=== PATIENT | female | born 1960 | race Caucasian/White ===

== ENCOUNTER 2022-09-19 06:00 | Day surgery (SDC) | payer OTHER | END 2022-09-19 11:25 | disposition home or self-care (01) | LOC: AMB-ENDOS 06:00 | PROVIDERS: ATTEND Surgery | DX: K63.5 Polyp of colon (principal); K92.1 Melena; Z20.822 Contact with and (suspected) exposure to COVID-19 ==

== ENCOUNTER 2022-12-02 11:54 | Inpatient (IN) | payer OTHER ==
[~2022-12-02] VITALS: Ht 167.6 cm; Wt 93.4 kg
[2022-12-03] MEDS ORDERED: NORVASC2.5 M1 PO (08:52)
[2022-12-03] MEDS ORDERED: ELIQUIS2.5 MG PO (08:52)
[2022-12-03] MEDS ORDERED: ZESTRIL2.5 MG PO (08:52)
[2022-12-03] MEDS ORDERED: HORIZANT300 MG PO (08:53)
[2022-12-03] MEDS ORDERED: LIPITOR20 MG PO (08:53)
[2022-12-03] MEDS ORDERED: HUMULIN 70100 UNIT/2 (08:53)
[2022-12-03] MEDS ORDERED: ZANAFLEX2 MG PO (08:54)
[2022-12-03] MEDS ORDERED: JARDIANCE10 MG PO (08:55)
[2022-12-09] MEDS ORDERED: ELIQUIS5 MG (08:33)
[2022-12-09] MEDS ORDERED: TRADJENTA5 MG (08:34)
[2022-12-09] MEDS ORDERED: GABAPENTIN400 MG (08:34)
[2022-12-09] MEDS ORDERED: ATORVASTATIN CA80 MG (08:34)
[2022-12-09] MEDS ORDERED: MAXIMUM D3325 MCG (08:34)
[2022-12-09] MEDS ORDERED: LISINOPRIL10 MG (08:34)
[2022-12-09] MEDS ORDERED: FAMOTIDINE20 MG (08:34)
[2022-12-09] MEDS ORDERED: FUROSEMIDE20 MG (08:34)
[2022-12-09] MEDS ORDERED: AMLODIPINE BESY10 MG (08:34)
[2022-12-09] MEDS ORDERED: CALCITRIOL0.25 MCG (08:34)
[2022-12-16] MEDS ORDERED: ACETAMINOPHEN500 M2 PO (12:45)
[2022-12-16] MEDS ORDERED: NEURONTIN300 MG PO (12:45)
== END 2022-12-16 16:27 | disposition home or self-care (01) | DRG 330 ==
LOC: O/R 12-09 06:05 → SURG 12-09 06:05 → SURH 12-09 09:15 → SURG 12-09 10:14 → SURH 12-09 16:00 → O/R 12-11 14:30 → SURH 12-11 14:31
PROVIDERS: ADMIT Surgery; ATTEND Surgery
PROC: 07BC4ZZ Excision of Pelvis Lymphatic, Percutaneous Endoscopic Approach (ICD-10-PCS; 2022-12-09)
PROC: B24BYZZ Ultrasonography of Heart with Aorta using Other Contrast (ICD-10-PCS; 2022-12-09)
PROC: 4A12X4Z Monitoring of Cardiac Electrical Activity, External Approach (ICD-10-PCS; 2022-12-09)
PROC: 02HV33Z Insertion of Infusion Device into Superior Vena Cava, Percutaneous Approach (ICD-10-PCS; 2022-12-09)
PROC: 5A0945A Assistance with Respiratory Ventilation, 24-96 Consecutive Hours, High Flow/Velocity Cannula (ICD-10-PCS; 2022-12-09)
PROC: 0DTF4ZZ Resection of Right Large Intestine, Percutaneous Endoscopic Approach (ICD-10-PCS; principal; 2022-12-09 16:00)
PROC: BW24ZZZ Computerized Tomography (CT Scan) of Chest and Abdomen (ICD-10-PCS; 2022-12-11)
PROC: B54DZZZ Ultrasonography of Bilateral Lower Extremity Veins (ICD-10-PCS; 2022-12-11)
DX: D12.0 Benign neoplasm of cecum (principal); I48.20 Chronic atrial fibrillation, unspecified; K92.1 Melena; J95.89 Other postprocedural complications and disorders of respiratory system, not elsewhere classified; J98.11 Atelectasis; R09.02 Hypoxemia; R59.0 Localized enlarged lymph nodes; I11.9 Hypertensive heart disease without heart failure; Z79.01 Long term (current) use of anticoagulants; E11.9 Type 2 diabetes mellitus without complications; Z79.4 Long term (current) use of insulin; E66.09 Other obesity due to excess calories; E78.5 Hyperlipidemia, unspecified

== ENCOUNTER 2022-12-18 15:17 | Inpatient (IN) | payer OTHER ==
[~2022-12-18] VITALS: Ht 152.4 cm; Wt 90.7 kg
[~2022-12-18 15:17] MED LIST: ACETAMINOPHEN500 M2 PO; AMLODIPINE BESY10 MG; ATORVASTATIN CA80 MG; CALCITRIOL0.25 MCG; ELIQUIS2.5 MG PO; ELIQUIS5 MG; FAMOTIDINE20 MG; FUROSEMIDE20 MG; GABAPENTIN400 MG; HORIZANT300 MG PO; HUMULIN 70100 UNIT/2; JARDIANCE10 MG PO; LIPITOR20 MG PO; LISINOPRIL10 MG; MAXIMUM D3325 MCG; NEURONTIN300 MG PO; NORVASC2.5 M1 PO; TRADJENTA5 MG; ZANAFLEX2 MG PO; ZESTRIL2.5 MG PO
[2023-01-02] MEDS ORDERED: AMLODIPINE BESY10 MG PO (10:42)
[2023-01-02] MEDS ORDERED: ELIQUIS5 MG PO (10:42)
[2023-01-02] MEDS ORDERED: LISINOPRIL10 MG PO (10:43)
[2023-01-02] MEDS ORDERED: METOPROLOL TAR100 MG PO (10:43)
[2023-01-02] MEDS ORDERED: LANOXIN125 MCG PO (10:43)
[2023-01-02] MEDS ORDERED: INTESTINEX680 M1 PO (10:44)
[2023-01-02] MEDS ORDERED: FUROSEMIDE10 MG/1 M1 PO (10:44)
[2023-01-02] MEDS ORDERED: PROTEINEX-18 LI30 ML PO (10:44)
== END 2023-01-02 13:07 | disposition home or self-care (01) | DRG 871 ==
LOC: ER 15:17 → ICU-2 23:13 → ICU 12-20 03:04 → SURG 12-29 21:13
PROVIDERS: General Practice; Internal Medicine Geriatric Medicine; Internal Medicine Infectious Disease; ADMIT Surgery; ATTEND Surgery
PROC: BW21ZZZ Computerized Tomography (CT Scan) of Abdomen and Pelvis (ICD-10-PCS; 2022-12-18)
PROC: 3E0F7GC Introduction of Other Therapeutic Substance into Respiratory Tract, Via Natural or Artificial Opening (ICD-10-PCS; 2022-12-19)
PROC: 02HV33Z Insertion of Infusion Device into Superior Vena Cava, Percutaneous Approach (ICD-10-PCS; 2022-12-20)
PROC: 30233N1 Transfusion of Nonautologous Red Blood Cells into Peripheral Vein, Percutaneous Approach (ICD-10-PCS; 2022-12-20)
PROC: B54NZZZ Ultrasonography of Left Upper Extremity Veins (ICD-10-PCS; 2022-12-24)
PROC: BW21ZZZ Computerized Tomography (CT Scan) of Abdomen and Pelvis (ICD-10-PCS; 2022-12-24)
PROC: 5A09457 Assistance with Respiratory Ventilation, 24-96 Consecutive Hours, Continuous Positive Airway Pressure (ICD-10-PCS; 2022-12-24)
PROC: 0W993ZZ Drainage of Right Pleural Cavity, Percutaneous Approach (ICD-10-PCS; principal; 2022-12-26)
PROC: BB24ZZZ Computerized Tomography (CT Scan) of Bilateral Lungs (ICD-10-PCS; 2022-12-28)
PROC: 4A12X4Z Monitoring of Cardiac Electrical Activity, External Approach (ICD-10-PCS; 2022-12-29)
DX: A41.9 Sepsis, unspecified organism (principal); K65.1 Peritoneal abscess; K91.89 Other postprocedural complications and disorders of digestive system; J98.11 Atelectasis; J91.8 Pleural effusion in other conditions classified elsewhere; B37.49 Other urogenital candidiasis; I48.20 Chronic atrial fibrillation, unspecified; N17.8 Other acute kidney failure; N18.30 Chronic kidney disease, stage 3 unspecified; D64.89 Other specified anemias; D63.1 Anemia in chronic kidney disease; Z90.49 Acquired absence of other specified parts of digestive tract; E78.49 Other hyperlipidemia; Z79.4 Long term (current) use of insulin; R09.02 Hypoxemia; D72.828 Other elevated white blood cell count; I12.9 Hypertensive chronic kidney disease with stage 1 through stage 4 chronic kidney disease, or unspecified chronic kidney disease; E11.22 Type 2 diabetes mellitus with diabetic chronic kidney disease; E11.42 Type 2 diabetes mellitus with diabetic polyneuropathy